=== PATIENT | female | born 1945 ===

== ENCOUNTER 2024-09-03 09:04 | Emergency (ER) | payer OTHER, MEDICARE ==
[2024-09-03] MEDS ORDERED: Sodium Chloride 0.9% 2.5 ML Syringe FLUSH PRN (09:15)
[2024-09-03] MEDS ORDERED: Sodium Chloride 0.9% 10 ML Syringe FLUSH PRN (09:15)
[2024-09-03 09:29] LABS: BASOPHILS ABSOLUTE AUTO 0.04 K/uL (0.00-0.20); BASOPHILS PERCENT AUTO 0.6 % (0.0-1.0); EOSINOPHILS ABSOLUTE AUTO 0.04 K/uL (0.00-0.45); EOSINOPHILS PERCENT AUTO 0.6 % (0.0-6.0); IMMATURE GRAN ABSOLUTE AUTO 0.08 K/uL (0.00-0.05); IMMATURE GRAN PERCENT AUTO 1.3 % (0.0-0.4); LYMPHOCYTES ABSOLUTE AUTO 1.30 K/uL (1.00-4.80); LYMPHOCYTES PERCENT AUTO 20.4 % (24.0-44.0); MEAN PLATELET VOLUME 8.9 fL (9.4-12.3); MONOCYTES ABSOLUTE AUTO 0.40 K/uL (0.00-0.80); MONOCYTES PERCENT AUTO 6.3 % (0.0-8.0); NEUTROPHILS ABSOLUTE AUTO 4.51 K/uL (1.80-7.70); NEUTROPHILS PERCENT AUTO 70.8 % (41.0-71.0); NRBC ABSOLUTE 0.00 K/uL (0.00-0.02); NRBC PERCENT 0.0 /100WBC (0.0-0.2); PLATELET COUNT,PLT 274 K/uL (150-400); RED BLOOD CELL COUNT 4.94 M/uL (4.10-5.30); WHITE BLOOD CELL COUNT,WBC 6.37 K/uL (3.9-11.3)
[2024-09-03 09:38] LABS: INR 0.97 (0.86-1.11); PTT,PARTIAL THROMBOPLSTIN TIME 33.4 SEC (23.9-30.7)
[2024-09-03 09:53] LABS: A/G RATIO 1.0 (0.9-1.6); ALANINE AMINOTRANSFERASE,ALT 25.0 IU/L (14-63); ASPARTATE AMNIOTRANSFERASE,AST 21.0 IU/L (15-37); BILIRUBIN TOTAL 0.7 mg/dL (0.2-1.0); BLOOD UREA NITROGEN,BUN 24.0 mg/dL (7.0-18.0); CARBON DIOXIDE,CO2 26.5 mmol/L (21.0-32.0); CHLORIDE,CL 104.0 mmol/L (98-107); CREATINE KINASE,CK 153.0 U/L (26-308); CREATININE 1.1 mg/dL (0.6-1.0); EST CRCL DRUG DOSING (CG) 38.28 mL/min; GLUCOSE RANDOM 138.0 mg/dL (74-106); POTASSIUM,K 4.3 mmol/L (3.5-5.1); PROTEIN TOTAL,TP 7.5 g/dL (6.4-8.2); SODIUM,NA 141.0 mmol/L (136-145)
[2024-09-03 09:57] LABS: ESTIMATED GFR 50.0 mL/min (>60)
[2024-09-03] MEDS: Iopamidol 755 MG/ML 500 ML Multipack Bottle IVPUSH STA (09:57)
[2024-09-03 10:03] LABS: LACTIC ACID 1.4 mmol/L (0.4-2.0)
[2024-09-03 10:50] LABS: APPEARANCE,URINE CLEAR; GLUCOSE,URINE NEGATIVE (NEGATIVE); OCCULT BLOOD,URINE NEGATIVE (NEGATIVE)
[2024-09-03] MEDS ORDERED: Naloxone 0.4 MG/ML SDV IVPUSH PRN (11:12)
[2024-09-03] MEDS: Ondansetron 4 MG/2 ML SDV IVPUSH ONE (11:15)
[2024-09-03 14:11] VITALS: BP 119/54; PULSE 86
== END 2024-09-03 14:11 | disposition home or self-care (01) ==
LOC: MW.ED 09:04
DX: S06.0X0A Concussion without loss of consciousness, initial encounter (principal); S80.02XA Contusion of left knee, initial encounter; S70.02XA Contusion of left hip, initial encounter; V49.49XA Driver injured in collision with other motor vehicles in traffic accident, initial encounter
CPT/HCPCS: 36415; 70450; 71045; 71260; 72125; 72170; 73070; 73080; 73090; 73120; 73590; 73700; 74177; 80053; 81003; 82550; 83605; 83735; 84484; 85025; 85610; 85730; 96372; 96374; 96375; 99285; J2270; J2405; J2765; J7030; Q9967; 72128-26; 72131-26; 99283